=== PATIENT | male | born 1935 | race Caucasian/White ===

== ENCOUNTER 2018-04-14 13:50 | Inpatient (IN) | payer OTHER, MEDICAID ==
[~2018-04-14] VITALS: Ht 188 cm; Wt 103.2 kg
[~2018-04-14 13:50] MED LIST: ALBU2.5V7 INH; ASCO250T5 PO; CETI1TAB2 PO; DEBROX OT; DONE10TA44 PO; DOXY-4 PO; FERR-57 PO; NIFE90TA48 PO; SIMV20TA6 PO; TAMS-11 PO
[2018-04-14 13:58] VITALS: BP_SYST 120
[2018-04-14] MEDS ORDERED: LORazepam 1 MG TABLET PO ONE (14:45)
[2018-04-14] MEDS ORDERED: HALOPERIDOL LACTATE 5 MG/ML VIAL IVP ONE (15:30)
[2018-04-14] MEDS ORDERED: LORazepam 2 MG/ML VIAL (FOR ER USE) IVP ONE (15:30)
[2018-04-14] MEDS ORDERED: ASPIRIN 81 MG TAB.CHEW PO ONE (15:30)
[2018-04-14 15:57] LABS: BASOPHILS # (AUTO) 0.2 K/uL (0.0-0.2); BASOPHILS % (AUTO) 1.2 % (0.0-2.0); EOSINOPHILS # (AUTO) 0.2 K/uL (0.0-0.4); EOSINOPHILS % (AUTO) 1.8 % (0.0-4.0); HEMOGLOBIN 12.8 g/dL (14.0-18.0); LYMPHOCYTES # (AUTO) 1.9 K/uL (1.0-5.5); LYMPHOCYTES % (AUTO) 14.5 % (20.5-51.5); MEAN CORPUSCULAR HEMOGLOBIN 27 pg (27-31); MEAN CORPUSCULAR HGB CONC 33 % (32-36); MEAN CORPUSCULAR VOLUME 83 fL (79.0-98.0); MONOCYTES # (AUTO) 0.9 K/uL (0.0-1.0); MONOCYTES % (AUTO) 6.9 % (1.7-9.3); NEUTROPHILS # (AUTO) 9.8 K/uL (1.8-7.7); NEUTROPHILS % (AUTO) 75.6 % (40.0-70.0); PLATELET COUNT (AUTO) 236 K/uL (130-430); RED BLOOD CELL COUNT(AUTO) 4.69 MIL/uL (4.2-6.2); RED CELL DISTRIBUTION WIDTH 14.3 % (9.0-15.0)
[2018-04-14 16:01] LABS: ANION GAP 7 (5-15); CALCIUM 9.1 mg/dL (8.4-11.0); CHLORIDE 103 mmol/L (98-107); GLUCOSE 121 mg/dL (70-99); POTASSIUM 3.9 mmol/L (3.5-5.1); SODIUM SERUM 137 mmol/L (136-145); UREA NITROGEN, BLOOD 30 mg/dL (8-21)
[2018-04-14 16:02] LABS: PROTHROMBIN TIME 10.2 SECS (9.5-12.5)
[2018-04-14 16:06] LABS: ALANINE AMINOTRANSFERASE 18 U/L (12-78); ALBUMIN 3.3 g/dL (3.4-4.8); ASPARTATE AMINOTRANSFERASE 28 U/L (10-37); TOTAL BILIRUBIN 0.3 mg/dL (0.0-1.0)
[2018-04-14 16:50] LABS: CKMB RELATIVE INDEX 0.5 (0.0-2.9); CREATINE KINASE MB 4.4 ng/mL (0-3.6)
[2018-04-14 16:52] VITALS: BP_SYST 144
[2018-04-14 17:00] VITALS: BP_SYST 144
[2018-04-14] MEDS ORDERED: MORPHINE 4 MG/ML INJ. SYRINGE IVP PRN ×2 (19:00)
[2018-04-14] MEDS ORDERED: CLINDAMYCIN PHOSPHATE 900 MG/6 ML VIAL IV ONE (19:20)
[2018-04-14] MEDS ORDERED: BUPIVACAINE /DEX PF 0.75% SPINAL 2 ML AMP INJ ONE (19:20)
[2018-04-14] MEDS ORDERED: LR 1,000 ML IV.SOLN IV ONE (19:20)
[2018-04-14] MEDS ORDERED: PROPOFOL 200MG/ 20ML VIAL (DIPRIVAN) IV ONE (19:20)
[2018-04-14] MEDS ORDERED: MIDAZOLAM HCL 5 MG/ML VIAL (VERSED) IV ONE (19:20)
[2018-04-14] MEDS ORDERED: ePHEDrine sulfate 50 MG/ML VIAL IVP ONE (19:20)
[2018-04-14 20:00] VITALS: BP_SYST 156
[2018-04-14] MEDS ORDERED: LORazepam 1 MG TABLET PO PRN (20:30)
[2018-04-14] MEDS: SIMVASTATIN 20 MG TABLET PO SCH (20:48)
[2018-04-14] MEDS: TAMSULOSIN HCL 0.4 MG CAP PO SCH (20:48)
[2018-04-14] MEDS: DONEPEZIL HCL 5 MG TABLET (ARICEPT) PO SCH (20:48)
[2018-04-14] MEDS: ACETAMINOPHEN 325 MG TABLET PO PRN (20:48)
[2018-04-15 00:34] VITALS: BP_SYST 144
[2018-04-15 02:50] LABS: BILIRUBIN,URINE NEGATIVE (NEGATIVE); BLOOD, URINE 3+ (NEGATIVE); COLOR,URINE YELLOW (YELLOW); GLUCOSE,URINE NEGATIVE (NEGATIVE); KETONES,URINE NEGATIVE (NEGATIVE); LEUKOCYTE ESTERASE ,URINE 1+ (NEGATIVE); NITRITE, URINE NEGATIVE (NEGATIVE); PROTEIN URINE 2+ (NEGATIVE); UROBILINOGEN,URINE 0.2 (0.2-1.0)
[2018-04-15 02:51] LABS: CLARITY/URINE SLIGHTLY HAZY (CLEAR)
[2018-04-15 02:59] LABS: BACTERIA,URINE FEW /HPF (None Seen); RBC,URINE 20-50 /HPF (0-3)
[2018-04-15 07:18] LABS: ANION GAP 6 (5-15); BASOPHILS % (AUTO) 0.3 % (0.0-2.0); CALCIUM 9.2 mg/dL (8.4-11.0); CHLORIDE 101 mmol/L (98-107); CREATININE 1.45 mg/dL (0.55-1.30); EOSINOPHILS # (AUTO) 0.5 K/uL (0.0-0.4); GLUCOSE 118 mg/dL (70-99); HEMATOCRIT 42.6 % (36-54); HEMOGLOBIN 14.2 g/dL (14.0-18.0); LYMPHOCYTES % (AUTO) 15.4 % (20.5-51.5); MEAN CORPUSCULAR HEMOGLOBIN 28 pg (27-31); MEAN CORPUSCULAR HGB CONC 33 % (32-36); MEAN CORPUSCULAR VOLUME 84 fL (79.0-98.0); MONOCYTES # (AUTO) 0.9 K/uL (0.0-1.0); MONOCYTES % (AUTO) 6.8 % (1.7-9.3); NEUTROPHILS # (AUTO) 9.5 K/uL (1.8-7.7); NEUTROPHILS % (AUTO) 73.5 % (40.0-70.0); PLATELET COUNT (AUTO) 235 K/uL (130-430); POTASSIUM 3.5 mmol/L (3.5-5.1); RED CELL DISTRIBUTION WIDTH 14.4 % (9.0-15.0); SODIUM SERUM 135 mmol/L (136-145); UREA NITROGEN, BLOOD 24 mg/dL (8-21); WHITE BLOOD COUNT (AUTO) 12.9 K/uL (4.8-10.8)
[2018-04-15 07:51] VITALS: BP_SYST 140
[2018-04-15] MEDS: NIFEDIPINE 90 MG TABLET.SA (PROCARDIA XL 90 MG) PO SCH ×2 (08:31→08:39)
[2018-04-15 12:10] VITALS: BP_SYST 143
[2018-04-15 17:58] VITALS: BP_SYST 133
[2018-04-15] MEDS ORDERED: POLYMYXIN 500,000/BACIT.10,000 UNITS in NS IRR 1 L IR ONE (18:48)
[2018-04-15 19:00] VITALS: BP_SYST 129
[2018-04-15] MEDS ORDERED: MORPHINE SULFATE 10MG/10ML PF AMP SP SCH (19:00)
[2018-04-15] MEDS ORDERED: NALBUPHINE HCL 10 MG/ML AMP IVP PRN (19:00)
[2018-04-15] MEDS ORDERED: fentaNYL CITRATE/PF 100 MCG/2 ML AMP IVP PRN ×2 (19:00)
[2018-04-15] MEDS ORDERED: ONDANSETRON HCL 4 MG/2 ML VIAL IVP PRN ×2 (19:00)
[2018-04-15] MEDS ORDERED: NALOXONE HCL 0.4 MG/ML AMP (NARCAN) IVP PRN ×2 (19:00)
[2018-04-15] MEDS ORDERED: KETOROLAC TROMETHAMINE 60 MG/2 ML VIAL IM PRN (19:00)
[2018-04-15] MEDS ORDERED: IPRATROPIUM BROM 0.5 MG/2.5 ML VIAL.NEB (ATROVENT) INH ONE (19:38)
[2018-04-15] MEDS ORDERED: ALBUTEROL SULFATE 0.083% 2.5 MG/3 ML VIAL.NEB INH ONE (19:38)
[2018-04-15] MEDS: DONEPEZIL HCL 5 MG TABLET (ARICEPT) PO SCH (21:14)
[2018-04-15] MEDS: TAMSULOSIN HCL 0.4 MG CAP PO SCH (21:14)
[2018-04-15] MEDS: SIMVASTATIN 20 MG TABLET PO SCH (21:14)
[2018-04-15] MEDS: D5/0.45 NS 1,000 ML IV SCH (21:17)
[2018-04-15] MEDS: IPRATROPIUM/ALBUTEROL SULFATE 3 ML AMPUL.NEB INH SCH ×2 (23:16→23:20)
[2018-04-16 00:26] VITALS: BP_SYST 142
[2018-04-16] MEDS: D5/0.45 NS 1,000 ML IV SCH ×3 (04:29→20:01)
[2018-04-16] MEDS: IPRATROPIUM/ALBUTEROL SULFATE 3 ML AMPUL.NEB INH SCH ×5 (07:16→23:35)
[2018-04-16 08:00] VITALS: BP_SYST 131
[2018-04-16] MEDS: NIFEDIPINE 90 MG TABLET.SA (PROCARDIA XL 90 MG) PO SCH (08:37)
[2018-04-16 12:01] VITALS: BP_SYST 137
[2018-04-16 16:53] VITALS: BP_SYST 120
[2018-04-16] MEDS: ACETAMINOPHEN 325 MG TABLET PO PRN (18:20)
[2018-04-16 19:54] VITALS: BP_SYST 133
[2018-04-16] MEDS: TAMSULOSIN HCL 0.4 MG CAP PO SCH (20:00)
[2018-04-16] MEDS: SIMVASTATIN 20 MG TABLET PO SCH (20:00)
[2018-04-16] MEDS: DONEPEZIL HCL 5 MG TABLET (ARICEPT) PO SCH (20:01)
[2018-04-17 00:10] VITALS: BP_SYST 130
[2018-04-17] MEDS: D5/0.45 NS 1,000 ML IV SCH (04:23)
[2018-04-17] MEDS: IPRATROPIUM/ALBUTEROL SULFATE 3 ML AMPUL.NEB INH SCH ×5 (04:35→20:46)
[2018-04-17] MEDS: ACETAMINOPHEN 325 MG TABLET PO PRN (06:16)
[2018-04-17 08:00] VITALS: BP_SYST 149
[2018-04-17] MEDS: NIFEDIPINE 90 MG TABLET.SA (PROCARDIA XL 90 MG) PO SCH (09:09)
[2018-04-17 12:12] VITALS: BP_SYST 134
[2018-04-17 16:24] VITALS: BP_SYST 134
[2018-04-17] MEDS ORDERED: ENOXAPARIN SODIUM 30 MG/0.3 ML SYRINGE SUBCUT SCH (17:00)
[2018-04-17 20:05] VITALS: BP_SYST 141
[2018-04-17] MEDS: DONEPEZIL HCL 5 MG TABLET (ARICEPT) PO SCH (20:26)
[2018-04-17] MEDS: SIMVASTATIN 20 MG TABLET PO SCH (20:26)
[2018-04-17] MEDS: TAMSULOSIN HCL 0.4 MG CAP PO SCH (20:26)
[2018-04-18 00:18] VITALS: BP_SYST 129
[2018-04-18] MEDS: IPRATROPIUM/ALBUTEROL SULFATE 3 ML AMPUL.NEB INH SCH ×5 (02:35→16:28)
[2018-04-18 08:30] VITALS: BP_SYST 144
[2018-04-18] MEDS: NIFEDIPINE 90 MG TABLET.SA (PROCARDIA XL 90 MG) PO SCH (09:28)
[2018-04-18 12:49] VITALS: BP_SYST 140
[2018-04-18 15:23] VITALS: BP_SYST 146
[2018-04-18 16:28] VITALS: BP_SYST 146
== END 2018-04-18 16:20 | DRG 481 ==
LOC: SED 13:50 → SMU 15:40
PROVIDERS: ADMIT Internal Medicine Hospice and Palliative Medicine; ATTEND Internal Medicine Hospice and Palliative Medicine
PROC: 0QH634Z Insertion of Internal Fixation Device into Right Upper Femur, Percutaneous Approach (ICD-10-PCS; principal; 2018-04-15 17:30)
DX: S72.001A Fracture of unspecified part of neck of right femur, initial encounter for closed fracture (principal); N17.9 Acute kidney failure, unspecified; J44.9 Chronic obstructive pulmonary disease, unspecified; F03.90 Unspecified dementia, unspecified severity, without behavioral disturbance, psychotic disturbance, mood disturbance, and anxiety; W18.39XA Other fall on same level, initial encounter; I10 Essential (primary) hypertension; Z90.5 Acquired absence of kidney; Z88.2 Allergy status to sulfonamides; Z88.5 Allergy status to narcotic agent; Z88.8 Allergy status to other drugs, medicaments and biological substances; Z79.899 Other long term (current) drug therapy; Z85.46 Personal history of malignant neoplasm of prostate; Y93.89 Activity, other specified; Y92.89 Other specified places as the place of occurrence of the external cause; Y99.8 Other external cause status
CPT/HCPCS: 36415; 71045; 72192-TC; 76001; 80048; 80053; 81000-TC; 82550-TC; 82553-TC; 83880; 84484; 85025; 85610-TC; 85730-TC; 87081; 93005; 94640; 94760; 96374; 96375; 97110-GP; 97116-GP; 97530-GP; 99285; C1713; J1630; J1650; J1885; J2060; J2250; J2274; J2405; J2704; J3490; J7120; J7613; J7620